=== PATIENT | male | born 1940 | race Hispanic/Latino ===

== ENCOUNTER 2017-10-21 09:16 | Emergency (ER) | payer MEDICARE, BC ==
[2017-10-21 10:26] LABS: BASO # 0.1 K/uL (0.0-0.2); BASO % 1.3 % (0.0-2.0); EOS # 0.3 K/uL (0.0-0.7); EOS % 3.9 % (0.0-4.0); LYMPH # 0.8 K/uL (1.0-4.3); LYMPH % 11.5 % (20.0-40.0); MEAN CELL VOLUME 89.6 fL (80.0-94.0); MEAN CORPUSCULAR HEMOGLOBIN 31.3 pg (27.0-31.0); MEAN CORPUSCULAR HGB CONC 34.9 g/dL (33.0-37.0); MEAN PLATELET VOLUME 8.2 fL (7.2-11.7); MONO # 0.4 K/uL (0.0-0.8); MONO % 6.2 % (0.0-10.0); NEUT # 5.1 K/uL (1.8-7.0); NEUT % 77.1 % (50.0-75.0); NRBC % 0.1 % (0.0-2.0); RBC 5.11 Mil/uL (4.40-5.90); RED CELL DISTRIBUTION WIDTH 13.3 % (11.5-14.5); WHITE BLOOD COUNT 6.6 K/uL (4.8-10.8)
[2017-10-21 10:33] LABS: INR 0.9; PROTHROMBIN TIME 10.5 SECONDS (9.7-12.2)
[2017-10-21 10:39] LABS: SQUAMOUS EPITHIAL 2 /hpf (0-5); URINE BILIRUBIN NEGATIVE (NEGATIVE); URINE BLOOD 3+ (NEGATIVE); URINE CALCIUM OXALATE CRYSTALS MANY /hpf (<OCC); URINE CLARITY Hazy (Clear); URINE COLOR Amber (YELLOW); URINE GLUCOSE (UA) 1+ mg/dL (Normal); URINE LEUKOCYTE ESTERASE NEG Leu/uL (Negative); URINE PROTEIN 2+ mg/dL (NEGATIVE); URINE UROBILINOGEN NORMAL mg/dL (0.2-1.0)
[2017-10-21 10:45] LABS: ALB/GLOB RATIO 1.3 (1.0-2.1); ALBUMIN 4.3 g/dL (3.5-5.0); ALT/SGPT 24 U/L (21-72); AST/SGOT 31 U/L (17-59); BLOOD UREA NITROGEN 12 mg/dL (9-20); CALCIUM 9.4 mg/dl (8.6-10.4); GFR AFRICAN-AMERICAN > 60; GFR NON-AFRICAN AMERICAN > 60; LIPASE 93 U/L (23-300)
--- NOTE | 2017-10-21 11:46 | C.PDOC ---
History Of Present Illness 77 year old male presents to the ED for evaluation of suprapubic pressure and hematuria which began earlier today. Patient has a history of kidney stones and notes current symptoms feel similar to his prior kidney stone exacerbation. Patient denies fever, chills, nausea, vomiting, diarrhea, and testicular pain. Time Seen by Provider: 10/21/17 10:04 Chief Complaint (Nursing): Male Genitourinary History Per: Patient History/Exam Limitations: no limitations Onset/Duration Of Symptoms: Hrs Current Symptoms Are (Timing): Still Present Quality Of Discomfort: Pressure Associated Symptoms: Urinary Symptoms (hematuria ). denies: Fever, Chills, Nausea, Vomiting, Diarrhea Additional History Per: Patient Past Medical History Reviewed: Historical Data, Nursing Documentation, Vital Signs Vital Signs: Last Vital Signs Temp 97.7 F 10/21/17 12:16 Pulse 55 L 10/21/17 12:16 Resp 16 10/21/17 12:16 BP 145/69 10/21/17 12:16 Pulse Ox 98 10/21/17 13:10 - Medical History PMH: Hiatal Hernia, HTN, Hypercholesterolemia, Hyperlipidemia, Kidney Stones, Chronic Kidney Disease Surgical History: Cholecystectomy, Coronary Stent - [facility] Procedures DILATION OF RIGHT URETER WITH INTRALUMINAL DEVICE, ENDO (05/23/15) Family History: States: Unknown Family Hx - Social History Hx Alcohol Use: Yes (SOCIALLY) Hx Substance Use: No - Immunization History Hx Tetanus Toxoid Vaccination: No Hx Influenza Vaccination: No Hx Pneumococcal Vaccination: No Review Of Systems Constitutional: Negative for: Fever, Chills Gastrointestinal: Positive for: Other (suprapubic pressure ). Negative for: Nausea, Vomiting, Diarrhea Genitourinary: Positive for: Hematuria. Negative for: Other (testicular pain ) Physical Exam - Physical Exam Appears: Non-toxic, No Acute Distress Skin: Normal Color, Warm, Dry Head: Atraumatic, Normacephalic Eye(s): bilateral: Normal Inspection Oral Mucosa: Moist Neck: Supple Chest: Symmetrical, No Deformity, No Tenderness Cardiovascular: Rhythm Regular, No Murmur Respiratory: Normal Breath Sounds, No Rales, No Rhonchi, No Wheezing Gastrointestinal/Abdominal: Bowel Sounds (present ), Soft, No Tenderness, No Distention, No Guarding, No Rebound Male Genital: No Testicular Tenderness, Circumcised, No Other (signs of infection, including casey's gangrene) Extremity: Normal ROM, Capillary Refill (less than 2 seconds ) Neurological/Psych: Oriented x3, Normal Speech, Normal Cognition ED Course And Treatment - Laboratory Results Result Diagrams: 10/21/17 10:21 10/21/17 10:21 O2 Sat by Pulse Oximetry: 98 (on RA) Pulse Ox Interpretation: Normal - CT Scan/US CT A/P Other Rad Studies (CT/US): Interpreted By Me, Read By Radiologist, Radiology Report Reviewed CT/US Interpretation: PROCEDURE: CT Abdomen and Pelvis without intravenous contrast. HISTORY: abd. pain. COMPARISON: 05/23/2015. TECHNIQUE: Without contrast.. Contrast Dose: 0. Radiation dose: Total exam DLP =. Total exam DLP = 453.45 mGy-cm. This CT exam was performed using one or more of the following dose reduction techniques: Automated exposure control, adjustment of the mA and/or kV according to patient size, and/or use of iterative reconstruction technique. FINDINGS: LOWER THORAX: Unremarkable. LIVER: Unremarkable. No gross lesion or ductal dilatation. GALLBLADDER AND BILE DUCTS : Unremarkable. PANCREAS: Unremarkable. No gross lesion or ductal dilatation. SPLEEN: Unremarkable. ADRENALS: Unremarkable. No mass. KIDNEYS AND URETERS: Stable 1.5 cm hypodense right lower pole renal cortical mass, likely cyst. Stable hypodense 12 mm right upper pole renal cortical cyst, likely cysts. Stable 10 mm hyper dense right upper pole renal cortical mass, likely hyperdense cysts. No change since 05/23/2015. No renal calculus or hydronephrosis. No ureteral calculus. VASCULATURE: Unremarkable. No aortic aneurysm. BOWEL: Sigmoid diverticulosis without evidence of diverticulitis. No bowel obstruction. No other abnormal bowel loops are identified. APPENDIX: Unremarkable. Normal appendix. PERITONEUM: Unremarkable. No free fluid. No free air. LYMPH NODES: Unremarkable. No enlarged lymph nodes. BLADDER: Poorly distended. REPRODUCTIVE: Mild prostate enlargement. BONES: No acute fracture. OTHER FINDINGS: None. IMPRESSION: No acute abnormality. 3 stable right renal masses, 1 hyperdense. Likely cysts. Sigmoid diverticulosis without evidence of diverticulitis. No evidence of urinary calculus or urinary tract obstruction. Medical Decision Making Medical Decision Making: Progress: Bloodwork, UA, CT A/P ordered. Results show evidence of renal mass. On reassessment, patient is resting comfortably, showing no signs of distress and is stable for discharge with diagnosis of hematuria, kidney stones and kidney mass. Discussed CT finding with patient. Patient understands to follow- up with Dr. Joyce within 1-2 days for further evaluation. Disposition Counseled Patient/Family Regarding: Studies Performed, Diagnosis, Need For Followup, Rx Given - Disposition Referrals: Cornel Joyce MD [Staff Provider] - Disposition: HOME/ ROUTINE Disposition Time: 12:50 Condition: STABLE Additional Instructions: follow up with urologist in 2 days call to make an appointment take pain medication as needed bring copy of cat scan report to you to urology follow up drink plenty of fluids return to hospital if symptoms worsens or progress Prescriptions: traMADol [Ultram] 50 mg PO TID PRN #12 tab PRN Reason: Pain, Moderate (4-7) Instructions: Blood in the Urine (Hematuria) in Adults, Kidney Stones (DC) Forms: [facility] (Nepali), General Discharge Instructions - Clinical Impression Clinical Impression: Hematuria, Ureteral colic, Kidney mass - Scribe Statement The provider has reviewed the documentation as recorded by the Scribe (Holley Muller) Provider Attestation: All medical record entries made by the Scribe were at my direction and personally dictated by me. I have reviewed the chart and agree that the record accurately reflects my personal performance of the history, physical exam, medical decision making, and the department course for this patient. I have also personally directed, reviewed, and agree with the discharge instructions and disposition.
--- NOTE | 2017-10-21 11:53 | CT ---
PROCEDURE: CT Abdomen and Pelvis without intravenous contrast HISTORY: abd. pain COMPARISON: 05/23/2015 TECHNIQUE: Without contrast.. Contrast Dose: 0 Radiation dose: Total exam DLP = Total exam DLP = 453.45 mGy-cm. This CT exam was performed using one or more of the following dose reduction techniques: Automated exposure control, adjustment of the mA and/or kV according to patient size, and/or use of iterative reconstruction technique. FINDINGS: LOWER THORAX: Unremarkable. LIVER: Unremarkable. No gross lesion or ductal dilatation. GALLBLADDER AND BILE DUCTS: Unremarkable. PANCREAS: Unremarkable. No gross lesion or ductal dilatation. SPLEEN: Unremarkable. ADRENALS: Unremarkable. No mass. KIDNEYS AND URETERS: Stable 1.5 cm hypodense right lower pole renal cortical mass, likely cyst. Stable hypodense 12 mm right upper pole renal cortical cyst, likely cysts. Stable 10 mm hyper dense right upper pole renal cortical mass, likely hyperdense cysts. No change since 05/23/2015. No renal calculus or hydronephrosis. No ureteral calculus. VASCULATURE: Unremarkable. No aortic aneurysm. BOWEL: Sigmoid diverticulosis without evidence of diverticulitis. No bowel obstruction. No other abnormal bowel loops are identified. APPENDIX: Unremarkable. Normal appendix. PERITONEUM: Unremarkable. No free fluid. No free air. LYMPH NODES: Unremarkable. No enlarged lymph nodes. BLADDER: Poorly distended REPRODUCTIVE: Mild prostate enlargement BONES: No acute fracture. OTHER FINDINGS: None. IMPRESSION: No acute abnormality. 3 stable right renal masses, 1 hyperdense. Likely cysts. Sigmoid diverticulosis without evidence of diverticulitis. No evidence of urinary calculus or urinary tract obstruction.
[2017-10-21 12:18] VITALS: BP 145/69; PULSE 55; RESP 16; TEMP 97.7
[2017-10-21 12:53] VITALS: O2SAT 98
== END 2017-10-21 13:15 | disposition home or self-care (01) ==
LOC: C.ER 09:16
DX: N28.89 Other specified disorders of kidney and ureter (principal); N23 Unspecified renal colic; R31.9 Hematuria, unspecified